=== PATIENT | male | born 1960 | race Caucasian/White ===

== ENCOUNTER 2019-03-17 16:32 | Emergency (ER) | payer OTHER ==
[~2019-03-17] VITALS: Ht 182.9 cm; Wt 113.4 kg
[2019-03-17] MEDS ORDERED: LISINOPRIL40 MG PO (16:43)
[2019-03-17] MEDS ORDERED: NORCO 10-325 T1 EACH PO (16:44)
[2019-03-17] MEDS ORDERED: SAVAYSA15 MG PO (16:44)
[2019-03-17 17:21] VITALS: BP 158/94
== END 2019-03-17 17:21 | disposition short-term general hospital (02) ==
LOC: ER 16:32
DX: S45.8 Injury of other specified blood vessels at shoulder and upper arm level (principal); I10 Essential (primary) hypertension; S41.112A Laceration without foreign body of left upper arm, initial encounter; W01.110A Fall on same level from slipping, tripping and stumbling with subsequent striking against sharp glass, initial encounter; Y93.89 Activity, other specified; Y92.89 Other specified places as the place of occurrence of the external cause; Y99.8 Other external cause status